=== PATIENT | male | born 1935 | race Caucasian/White ===

== ENCOUNTER 2017-05-26 22:04 | Emergency (ER) | payer OTHER ==
[~2017-05-26 22:04] MED LIST: ALPRAZOLAM1 M1 PO; ASPIR 8181 MG PO; ATORVASTATIN CA40 MG PO; EFFEXOR XR150 MG PO; EFFEXOR XR75 MG PO; FISH OIL 1,001000 M2 PO; FLOMAX0.4 MG PO; LISINOPRIL10 MG PO; VICODIN 5-5001 EACH PO; ZOFRAN ODT4 MG PO
== END 2017-05-26 22:25 | disposition left against medical advice (07) ==
LOC: M.ERS 22:04
DX: Z53.21 Procedure and treatment not carried out due to patient leaving prior to being seen by health care provider (principal)